=== PATIENT | female | born 1970 | race African-American/Black ===

== ENCOUNTER 2018-08-15 11:45 | Emergency (ER) | payer MEDICAID ==
[~2018-08-15] VITALS: Ht 172.7 cm; Wt 73.0 kg
[~2018-08-15 11:45] MED LIST: VICODIN
[2018-08-15] MEDS ORDERED: SODIUM CHLORIDE 0.9% 1,000 ML IV ONE (13:59)
[2018-08-15 14:00] VITALS: BP 131/84
[2018-08-15] MEDS ORDERED: HYDROCODONE/ACETAMINOPHEN 5/325MG TABLET PO ONE (14:30)
[2018-08-15] MEDS ORDERED: ONDANSETRON 4MG ODT PO ONE (14:30)
[2018-08-15 15:12] LABS: CHLORIDE 105 mEq/L (98-107)
[2018-08-15 15:13] LABS: PARTIAL THROMBOPLASTIN TIME 28.5 sec (23.4-31.0); PROTHROMBIN TIME 10.2 sec (9.1-11.1)
[2018-08-15 15:14] LABS: BASOPHILS % 0.7 % (0.0-2.0); EOSINOPHILS % 2.6 % (0.0-5.0); HEMATOCRIT. 36.9 % (36.0-48.0); HEMOGLOBIN. 12.4 g/dL (12.0-16.0); LYMPHOCYTES % 28.4 % (20.0-50.0); MEAN CORPUSCULAR HEMOGLOBIN 30.2 pg (28.0-32.0); MEAN CORPUSCULAR VOLUME 89.6 fL (81.0-99.0); MEAN PLATELET VOLUME 7.8 fl (7.4-10.4); MONOCYTES % 7.6 % (2.0-8.0); NEUTROPHILS % 60.7 % (40.0-76.0); PLATELET 321 x1000/uL (130-400); RED BLOOD CELL COUNT 4.12 mill/uL (4.2-5.4)
[2018-08-15 15:18] LABS: HCG SCREEN NEGATIVE
[2018-08-15 15:43] LABS: *AMPHETAMINES SCREEN URINE NEGATIVE (NEGATIVE); *BENZODIAZEPINES SCREEN URINE NEGATIVE (NEGATIVE); *COCAINE SCREEN URINE NEGATIVE (NEGATIVE); METHADONE URINE SCREEN NEGATIVE (NEGATIVE)
[2018-08-15 15:44] LABS: CANNABINOID URINE SCREEN NEGATIVE (NEGATIVE); PHENCYCLIDINE URINE SCREEN NEGATIVE (NEGATIVE)
[2018-08-15 15:46] LABS: *BARBITURATES SCREEN URINE NEGATIVE (NEGATIVE); OPIATES URINE SCREEN PRESUMTIVE POSITIVE (NEGATIVE)
== END 2018-08-15 15:15 | disposition left against medical advice (07) ==
LOC: ER 12:53
DX: R07.89 Other chest pain (principal); R06.00 Dyspnea, unspecified; R91.1 Solitary pulmonary nodule; J90 Pleural effusion, not elsewhere classified; I10 Essential (primary) hypertension; K21.9 Gastro-esophageal reflux disease without esophagitis; Z98.890 Other specified postprocedural states
CPT/HCPCS: 36415; 80053; 80305; 81025; 83690; 83880; 84484; 84703; 85025; 85610; 85730; 93005; 99284; J7030; Q0162

== ENCOUNTER 2018-10-25 01:15 | Inpatient (IN) | payer MEDICAID ==
[2018-10-25] VITALS (7 sets, daily range): BP systolic 104–145; BP diastolic 69–91
[~2018-10-25] VITALS: Ht 177.8 cm; Wt 76.7 kg
[2018-10-25] MEDS ORDERED: ONDANSETRON HCL 4MG/2ML INJ IV STA (02:56)
[2018-10-25] MEDS ORDERED: SODIUM CHLORIDE 0.9% 1,000 ML IV ONE (03:37)
[2018-10-25 04:29] LABS: HEMATOCRIT. 31.1 % (36.0-48.0); MEAN CORPUSCULAR HEMOGLOBIN 27.5 pg (28.0-32.0); MEAN CORPUSCULAR VOLUME 85.5 fL (81.0-99.0); MEAN PLATELET VOLUME 9.2 fl (7.4-10.4); PLATELET 217 x1000/uL (130-400); RED BLOOD CELL COUNT 3.63 mill/uL (4.2-5.4); RED CELL DISTRIBUTION WIDTH 17.2 % (11.6-14.6)
[2018-10-25] MEDS ORDERED: MORPHINE SULFATE 4 MG/ML CPJ (NOT FOR IM USE) IV SCH (04:30)
[2018-10-25 04:34] LABS: INR 1.3; PARTIAL THROMBOPLASTIN TIME 21.7 sec (23.4-31.0); PROTHROMBIN TIME 13.3 sec (9.1-11.1)
[2018-10-25 04:44] LABS: CHLORIDE 106 mEq/L (98-107)
[2018-10-25 04:53] LABS: ETHANOL BLOOD < 10 mg/dL
[2018-10-25 05:11] LABS: CLARITY URINE CLEAR (CLEAR); COLOR URINE YELLOW (YELLOW); KETONES URINE NEGATIVE (NEGATIVE); LEUKOCYTE ESTERASE URINE NEGATIVE (NEGATIVE); NITRITE URINE NEGATIVE (NEGATIVE); OCCULT BLOOD URINE NEGATIVE (NEGATIVE); PROTEIN URINE TRACE (NEGATIVE); SPECIFIC GRAVITY URINE 1.007 (1.005-1.030); UROBILINOGEN URINE 0.2 E.U./dL (0.2-1.0)
[2018-10-25] MEDS ORDERED: VANCOMYCIN 1 G PREMIX 200 ML IV ONE (05:15)
[2018-10-25] MEDS ORDERED: PIPERACILLIN/TAZ 3.375G PREMIX 50 ML IV ONE (05:15)
[2018-10-25 05:40] LABS: *AMPHETAMINES SCREEN URINE NEGATIVE (NEGATIVE); *BARBITURATES SCREEN URINE NEGATIVE (NEGATIVE); *BENZODIAZEPINES SCREEN URINE NEGATIVE (NEGATIVE); *COCAINE SCREEN URINE NEGATIVE (NEGATIVE); METHADONE URINE SCREEN NEGATIVE (NEGATIVE)
[2018-10-25 05:41] LABS: CANNABINOID URINE SCREEN NEGATIVE (NEGATIVE); PHENCYCLIDINE URINE SCREEN NEGATIVE (NEGATIVE)
[2018-10-25 05:47] LABS: OPIATES URINE SCREEN PRESUMTIVE POSITIVE (NEGATIVE)
[2018-10-25 07:14] LABS: PLATELET ESTIMATE NORMAL
[2018-10-25] MEDS ORDERED: ENOXAPARIN 60MG/0.6ML SYR SUBCUT ONE (08:00)
[2018-10-25] MEDS ORDERED: PIPERACILLIN/TAZOBACTAM 3.375GM/50ML PREMIX IV ONE (14:00)
[2018-10-25] MEDS ORDERED: CLONIDINE 0.1MG TABLET PO PRN (14:15)
[2018-10-25] MEDS: VANCOMYCIN 1500MG in DEXTROSE 5% WATER 250ML IV NR ×2 (15:57→16:23)
[2018-10-25] MEDS: PIPERACILLIN/TAZ 3.375G PREMIX 50 ML IV SCH ×3 (15:57→21:31)
[2018-10-25] MEDS: FUROSEMIDE 40MG/4ML VIAL IVP NR ×3 (15:58→17:33)
[2018-10-25] MEDS: POTASSIUM CHLORIDE 20MEQ/PACKET PO SCH ×3 (15:59→17:40)
[2018-10-25] MEDS: HYDROMORPHONE HCL/PF 2MG/ML CPJ IV PRN ×4 (15:59→21:33)
[2018-10-25] MEDS: AMLODIPINE 2.5MG TABLET PO SCH ×5 (16:07→21:33)
[2018-10-25] MEDS: ENOXAPARIN 80MG/0.8ML SYR SUBCUT SCH ×2 (21:00→21:32)
[2018-10-26] VITALS (12 sets, daily range): BP systolic 109–138; BP diastolic 65–86
[2018-10-26] MEDS: HYDROMORPHONE HCL/PF 2MG/ML CPJ IV PRN ×5 (01:57→20:13)
[2018-10-26] MEDS: PIPERACILLIN/TAZ 3.375G PREMIX 50 ML IV SCH ×4 (03:03→22:10)
[2018-10-26 07:05] LABS: HEMATOCRIT. 27.6 % (36.0-48.0); HEMOGLOBIN. 8.8 g/dL (12.0-16.0); MEAN CORPUSCULAR HEMOGLOBIN 27.3 pg (28.0-32.0); MEAN CORPUSCULAR VOLUME 85.3 fL (81.0-99.0); MEAN PLATELET VOLUME 8.9 fl (7.4-10.4); PLATELET 166 x1000/uL (130-400); RED BLOOD CELL COUNT 3.24 mill/uL (4.2-5.4); RED CELL DISTRIBUTION WIDTH 17.3 % (11.6-14.6)
[2018-10-26 07:09] LABS: CHLORIDE 107 mEq/L (98-107)
[2018-10-26 07:21] LABS: CREATINE KINASE 22 IU/L (26-192)
[2018-10-26 07:25] LABS: CREATINE KINASE MB FRACTION < 1.0 ng/mL (0.5-3.6)
[2018-10-26] MEDS: FUROSEMIDE 40MG/4ML VIAL IVP SCH (09:00)
[2018-10-26] MEDS: ENOXAPARIN 80MG/0.8ML SYR SUBCUT SCH ×2 (09:01→21:00)
[2018-10-26] MEDS: ONDANSETRON HCL 4MG/2ML INJ IV PRN ×3 (09:26→21:24)
[2018-10-26] MEDS: AMLODIPINE 2.5MG TABLET PO SCH ×2 (10:20→22:10)
[2018-10-26] MEDS: POTASSIUM CHLORIDE 20MEQ/PACKET PO SCH (10:21)
[2018-10-26] MEDS: VANCOMYCIN 1250MG in DEXTROSE 5% WATER 250ML IV SCH (10:23)
[2018-10-26] MEDS ORDERED: POTASSIUM CHLORIDE 20MEQ/PACKET PO NR (15:00)
[2018-10-26 16:45] LABS: PLATELET ESTIMATE NORMAL
[2018-10-26] MEDS: HYDROCODONE/ACETAMINOPHEN 5/325MG TABLET PO PRN (22:11)
[2018-10-27] VITALS (12 sets, daily range): BP systolic 104–131; BP diastolic 58–84
[2018-10-27] MEDS: HYDROMORPHONE HCL/PF 2MG/ML CPJ IV PRN ×5 (00:14→18:05)
[2018-10-27] MEDS: ONDANSETRON HCL 4MG/2ML INJ IV PRN ×5 (02:38→18:03)
[2018-10-27] MEDS: HYDROCODONE/ACETAMINOPHEN 5/325MG TABLET PO PRN ×4 (02:39→15:06)
[2018-10-27] MEDS: PIPERACILLIN/TAZ 3.375G PREMIX 50 ML IV SCH ×3 (04:43→16:42)
[2018-10-27] MEDS: VANCOMYCIN 1250MG in DEXTROSE 5% WATER 250ML IV SCH (04:43)
[2018-10-27] MEDS: FUROSEMIDE 40MG/4ML VIAL IVP SCH (08:16)
[2018-10-27] MEDS: POTASSIUM CHLORIDE 20MEQ/PACKET PO SCH (08:17)
[2018-10-27] MEDS: AMLODIPINE 2.5MG TABLET PO SCH (08:17)
[2018-10-27] MEDS: ENOXAPARIN 80MG/0.8ML SYR SUBCUT SCH ×2 (08:17→15:07)
[2018-10-27 09:26] LABS: CHLORIDE 103 mEq/L (98-107)
[2018-10-27] MEDS ORDERED: POTASSIUM CHLORIDE 20MEQ/PACKET PO NR (12:45)
[2018-10-27] MEDS ORDERED: MAGNESIUM 2 G PREMIX 50 ML IV NR (14:00)
[2018-10-28] MEDS ORDERED: VANCOMYCIN 1 G PREMIX 200 ML IV SCH (09:00)
== END 2018-10-27 18:50 | disposition home health service (06) | DRG 136 ==
LOC: ER 01:15 → 5EST 05:09 → EDBEDREQ 05:11 → EDBEDREQSVC 05:11 → EDBEDREQTM 05:11 → ENRESERV 10:47 → CANRESERV 10:47 → ENRESERV 11:34
PROVIDERS: ADMIT Internal Medicine; ATTEND Internal Medicine
DX: C34.90 Malignant neoplasm of unspecified part of unspecified bronchus or lung (principal); G93.40 Encephalopathy, unspecified; E43 Unspecified severe protein-calorie malnutrition; J18.9 Pneumonia, unspecified organism; J91.0 Malignant pleural effusion; I82.622 Acute embolism and thrombosis of deep veins of left upper extremity; N17.9 Acute kidney failure, unspecified; I50.9 Heart failure, unspecified; E87.2 Acidosis; D72.1 Eosinophilia; I27.20 Pulmonary hypertension, unspecified; D64.9 Anemia, unspecified; G89.4 Chronic pain syndrome; I11.0 Hypertensive heart disease with heart failure; K21.9 Gastro-esophageal reflux disease without esophagitis; N61.1 Abscess of the breast and nipple; Z85.118 Personal history of other malignant neoplasm of bronchus and lung; Z87.440 Personal history of urinary (tract) infections; Z87.891 Personal history of nicotine dependence; F41.9 Anxiety disorder, unspecified; Z68.24 Body mass index [BMI] 24.0-24.9, adult
CPT/HCPCS: 36415; 71045; 80048; 80202; 80305; 82140; 82550; 82553; 83605; 83735; 83880; 84145; 84443; 84484; 85379; 93005; 93306; 93970; 93971; 96365; 96366; 96375; 99291; J1170; J1650; J1940; J2270; J2405; J2543; J3370; J3475; J7030; J7050; J7060